=== PATIENT | female | born 1985 | race Caucasian/White ===

== ENCOUNTER 2018-01-17 22:45 | Emergency (ER) | payer MEDICAID, SELFPAY ==
[2018-01-17 22:46] VITALS: BP 138/97; PULSE 102; RESP 22; TEMP 37.1; O2SAT 98
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
== END 2018-01-18 01:09 | disposition home or self-care (01) ==
PROVIDERS: Emergency Provider Student in an Organized Health Care Education/Training Program
DX: S00.83XA Contusion of other part of head, initial encounter (principal); F10.929 Alcohol use, unspecified with intoxication, unspecified; V78.0XXA Driver of bus injured in noncollision transport accident in nontraffic accident, initial encounter
CPT/HCPCS: 90471; 99285; 70450; 70486; 72125; 99284